=== PATIENT | male | born 1960 ===

== ENCOUNTER → 2018-04-28 | Day surgery (SDC) | payer MEDICARE, BC ==
[~2018-04-28] VITALS: Ht 180.3 cm; Wt 97.5 kg
[~2018-04-28] MED LIST: AMOXICILLIN500 M2 PO; AMOXICILLIN500 M3 PO; BISMUTH262 M1 PO; CLARITHROMYCIN500 MG PO; Carafate1 GM/10 ML PO; OMEPRAZOLE40 MG PO; PERCOCET 10-321 EACH PO; XANAX0.5 MG PO
[2018-04-28 10:30] VITALS: BP 115/62
[2018-04-28 11:48] VITALS: BP 116/73
[2018-04-28 12:00] VITALS: BP 119/68
[2018-04-28 12:12] VITALS: BP 129/81
== END | disposition home or self-care (01) ==
LOC: SDC 04-21 10:00
DX: K29.50 Unspecified chronic gastritis without bleeding (principal); K44.9 Diaphragmatic hernia without obstruction or gangrene; K29.80 Duodenitis without bleeding; F41.9 Anxiety disorder, unspecified; Z79.2 Long term (current) use of antibiotics; Z98.890 Other specified postprocedural states; Z79.899 Other long term (current) drug therapy; Z88.1 Allergy status to other antibiotic agents; Z91.040 Latex allergy status; Z87.440 Personal history of urinary (tract) infections; Z87.11 Personal history of peptic ulcer disease; Z82.49 Family history of ischemic heart disease and other diseases of the circulatory system